=== PATIENT | male | born 1985 | race Caucasian/White ===

== ENCOUNTER → 2018-03-11 | Outpatient (CLI) | payer OTHER ==
[~2018-03-11] MED LIST: ALBIPROI INH; ALBU90I; ALBU90OI; ALBU90OI INH; AZIT250 PO; Benadryl 50 mg50 MG PO; CEPH500 PO; CLIN150 PO; CRUTCH2 USE; CRUTCH3 USE; CYCL10 PO; Cipro500 MG PO; DIPH25; DIPH50 PO; DOXY100 PO; DULO30 PO; ESOM20 PO; FAMO20 PO; HYDACE5 PO; IBUP600 PO; IBUP800 PO; LORA10ER PO; MARIJUANA; METO10 PO; METPHE10 PO; METPRE4DP PO; NAPR500 PO; NAPR550 PO; OMEP20ER PO; ONDA4ODT MM; OXYACE5T PO; PENVK500 PO; PRED10 PO; PROCODE120 PO; PROM25 PO; Pepcid20 MG PO; Prednisone20 MG PO; RANI150 PO; RXHYDACE PO; RXONDA4ODT MM; RXOXYACE PO; SILSUL1TC TOP; SULTRIDS PO; TRAM50 PO; Vibramycin100 MG PO; Zithromax250 MG PO; [UNRECOGNIZED DRUG - REMARK]
== END | disposition home or self-care (01) ==
LOC: LAB EV 09:54 → LAB SHORT 09:54
DX: L08.9 Local infection of the skin and subcutaneous tissue, unspecified (principal)
CPT/HCPCS: 87070; 87077; 87147; 87186; 87205

== ENCOUNTER 2019-03-24 20:23 | Emergency (ER) | payer OTHER ==
[~2019-03-24] VITALS: Ht 172.7 cm; Wt 65.8 kg
[2019-03-24] MEDS ORDERED: Prednisone20 MG PO (22:08)
[2019-03-24] MEDS ORDERED: ALBU90OI INH (22:08)
[2019-03-24] MEDS ORDERED: Vistaril25 MG PO (22:08)
== END 2019-03-24 22:20 | disposition home or self-care (01) ==
LOC: ER 20:23
DX: L50.9 Urticaria, unspecified (principal); Z76.0 Encounter for issue of repeat prescription; Z88.5 Allergy status to narcotic agent; I10 Essential (primary) hypertension; F17.200 Nicotine dependence, unspecified, uncomplicated
CPT/HCPCS: 99283; J7512

== ENCOUNTER 2019-04-10 10:58 | Emergency (ER) | payer OTHER ==
[~2019-04-10] VITALS: Ht 175.3 cm; Wt 65.8 kg
[~2019-04-10 10:58] MED LIST changes: +Vistaril25 MG PO
== END 2019-04-10 12:44 | disposition left against medical advice (07) ==
LOC: ER 10:58
DX: Z53.21 Procedure and treatment not carried out due to patient leaving prior to being seen by health care provider (principal)
CPT/HCPCS: 93005; 93010

== ENCOUNTER → 2019-12-23 | Outpatient (CLI) | payer OTHER ==
[~2019-12-23] MED LIST changes: +METH10 PO
== END | disposition home or self-care (01) ==
LOC: LAB SHORT 12:00 → LAB 12:00
DX: L02.91 Cutaneous abscess, unspecified (principal)
CPT/HCPCS: 87070; 87075; 87077; 87147; 87186; 87205

== ENCOUNTER 2020-06-19 18:44 | Inpatient (IN) | payer OTHER ==
[~2020-06-19] VITALS: Ht 172.7 cm; Wt 78.4 kg
[2020-06-19 20:13] LABS: BASOPHILS ABSOLUTE AUTO 0.08 K/mm3 (0.00-0.23); BASOPHILS PERCENT AUTO 1 % (0-2); EOSINOPHILS ABSOLUTE AUTO 0.91 K/mm3 (0.00-0.68); EOSINOPHILS PERCENT AUTO 8 % (0-6); Hematocrit 36.9 % (37.0-53.0); Hemoglobin 12.4 g/dL (13.5-17.5); IMMATURE GRAN ABSOLUTE AUTO 0.03 K/mm3 (0.00-0.10); IMMATURE GRAN PERCENT AUTO 0 % (0-1); LYMPHOCYTES ABSOLUTE AUTO 4.14 K/mm3 (0.84-5.20); LYMPHOCYTES PERCENT AUTO 35 % (21-46); MONOCYTES ABSOLUTE AUTO 1.17 K/mm3 (0.16-1.47); MONOCYTES PERCENT AUTO 10 % (4-13); Mean Corpuscular HGB 29.2 pg (26.0-34.0); Mean Corpuscular HGB Conc 33.6 g/dL (31.5-36.5); Mean Corpuscular Volume 87 fL (80-100); Mean Platelet Volume 10.1 fL (9.1-12.4); NEUTROPHILS ABSOLUTE AUTO 5.45 K/mm3 (1.96-9.15); NEUTROPHILS PERCENT AUTO 46 % (41-73); Platelet Count 245 K/mm3 (150-400); RDW Coefficient Variation 12.8 % (11.7-14.2); RDW Standard Deviation 41.1 fL (35.1-46.3); Red Blood Cell Count 4.24 M/mm3 (4.30-5.90); White Blood Cell Count 11.78 K/mm3 (4.00-11.30)
[2020-06-19 20:24] LABS: Alanine Aminotransfer (ALT/SGP 196 U/L (12-78); Albumin, Blood 3.4 g/dL (3.4-5.0); Albumin/Globulin Ratio 0.8 (0.8-1.8); Alk Phos 98 U/L (50-136); Anion Gap 5 mmol/L (6-16); Aspartate Aminotrans (AST/SGOT 73 U/L (12-37); Bilirubin, Total 0.3 mg/dL (0.1-1.0); Blood Urea Nitrogen 15 mg/dL (8-24); Bun/Creatinine Ratio 18.7 (12.0-20.0); CO2, Blood 25 mmol/L (21-32); Chloride, Blood 106 mmol/L (98-108); Globulin, Blood 4.2 g/dL (2.2-4.0); Glomerular Filtration Rate >60 (60-); Glucose, Blood 154 mg/dL (70-99); Sodium, Blood 136 mmol/L (136-145); Total Protein, Blood 7.6 g/dL (6.4-8.2)
--- NOTE | 2020-06-20 02:39 | NUR ---
ADMISSION: PATIENT IS RECIEVED VIA STRETCHER, AMB. TO BED FROM STRETCHER WITH A STEADY GAIT, VSS. PATIENT IS ORIENTED TO THE ROOM AND CALL [facility].
[2020-06-20 04:10] LABS: Influenza A, PCR NEGATIVE (NEGATIVE); Influenza B, PCR NEGATIVE (NEGATIVE); Resp Syncytial Virus, PCR NEGATIVE (NEGATIVE); SARS-Cov-2 (COVID-19) PCR, MMC NEGATIVE (NEGATIVE)
[2020-06-20 06:03] LABS: BASOPHILS ABSOLUTE AUTO 0.06 K/mm3 (0.00-0.23); BASOPHILS PERCENT AUTO 1 % (0-2); EOSINOPHILS PERCENT AUTO 8 % (0-6); Hematocrit 33.5 % (37.0-53.0); Hemoglobin 11.4 g/dL (13.5-17.5); IMMATURE GRAN ABSOLUTE AUTO 0.04 K/mm3 (0.00-0.10); IMMATURE GRAN PERCENT AUTO 0 % (0-1); LYMPHOCYTES PERCENT AUTO 42 % (21-46); MONOCYTES ABSOLUTE AUTO 0.94 K/mm3 (0.16-1.47); MONOCYTES PERCENT AUTO 9 % (4-13); Mean Corpuscular HGB 29.6 pg (26.0-34.0); Mean Corpuscular Volume 87 fL (80-100); NEUTROPHILS ABSOLUTE AUTO 4.33 K/mm3 (1.96-9.15); NEUTROPHILS PERCENT AUTO 40 % (41-73); Platelet Count 224 K/mm3 (150-400); RDW Coefficient Variation 12.9 % (11.7-14.2); RDW Standard Deviation 40.6 fL (35.1-46.3); Red Blood Cell Count 3.85 M/mm3 (4.30-5.90); White Blood Cell Count 10.77 K/mm3 (4.00-11.30)
--- NOTE | 2020-06-20 06:47 | NUR ---
SHIFT SUMMARY: PATIENT IS A&OX4, PAIN IN LEFT HAND IS WELL CONTROLED WITH IV TORADOL. USING URINAL INDEPENDANTLY. LACTATED RINGERS ARE INFUSING AT 100 ML/HR. NPO SINCE CO FOR PROCEEDURE IN OR TODAY.
[2020-06-20 06:55] LABS: Alanine Aminotransfer (ALT/SGP 178 U/L (12-78); Albumin/Globulin Ratio 0.8 (0.8-1.8); Alk Phos 95 U/L (50-136); Anion Gap 6 mmol/L (6-16); Aspartate Aminotrans (AST/SGOT 70 U/L (12-37); Bilirubin, Total 0.2 mg/dL (0.1-1.0); Blood Urea Nitrogen 11 mg/dL (8-24); Bun/Creatinine Ratio 14.6 (12.0-20.0); CO2, Blood 24 mmol/L (21-32); Calcium, Blood 8.3 mg/dL (8.5-10.1); Chloride, Blood 107 mmol/L (98-108); Creatinine, Blood 0.76 mg/dL (0.60-1.20); Globulin, Blood 3.8 g/dL (2.2-4.0); Glomerular Filtration Rate >60 (60-); Glucose, Blood 102 mg/dL (70-99); Sodium, Blood 137 mmol/L (136-145); Total Protein, Blood 6.8 g/dL (6.4-8.2)
--- NOTE | 2020-06-20 13:20 | NUR ---
PATIENT WAS BROUTGHT TO D/S FOR HIS PROCEDURE. Ambulatory in Day Surgery Lungs clear T/O to Auscultation. History, Chart, Medications and Allergies reviewed before start of procedure.Patient confirms NPO status and agrees with scheduled surgery. Pre-Op teaching done. Pt verbalizes understanding.
--- NOTE | 2020-06-20 15:33 | NUR ---
06/20/20 1533 THEOFARHAT ALVARADO PT RECEIVED SCHEDULED DOSE OF ANTIBIOTICS PRIOR TO PROCEDURE PER DR ORDERS.
--- NOTE | 2020-06-20 19:01 | NUR ---
SHIFT SUMMARY- PT ARRIVED BACK FROM SURGERY. VITALS REMAIN STABLE PAIN 9/10 MEDICATED PER EMAR. PT SLEEPING AT CHANGE OF SHIFT, WOKE TO GIVE LATE DINNER TRAY THAT ARRIVED AT 1840. PT CURRENTLY EATING DINNER. NO S&S OF DISTRESS NOTED AT THE TIME OF SHIFT CHANGE. RIGHT HAND IV NOT PATENT UPON ARRIVAL FROM DAY SURGERY. PASSED ON TO NIGHT RN IT WILL BE REMOVED SHORTLY.
[2020-06-21 00:48] LABS: Vancomycin, Trough 11.4 ug/mL (5.0-10.0)
[2020-06-21 05:30] LABS: BASOPHILS ABSOLUTE AUTO 0.03 K/mm3 (0.00-0.23); BASOPHILS PERCENT AUTO 0 % (0-2); EOSINOPHILS ABSOLUTE AUTO 0.01 K/mm3 (0.00-0.68); EOSINOPHILS PERCENT AUTO 0 % (0-6); Hematocrit 33.8 % (37.0-53.0); Hemoglobin 11.4 g/dL (13.5-17.5); IMMATURE GRAN ABSOLUTE AUTO 0.03 K/mm3 (0.00-0.10); IMMATURE GRAN PERCENT AUTO 0 % (0-1); LYMPHOCYTES ABSOLUTE AUTO 2.06 K/mm3 (0.84-5.20); LYMPHOCYTES PERCENT AUTO 20 % (21-46); MONOCYTES ABSOLUTE AUTO 0.47 K/mm3 (0.16-1.47); MONOCYTES PERCENT AUTO 5 % (4-13); Mean Corpuscular HGB 29.2 pg (26.0-34.0); Mean Corpuscular HGB Conc 33.7 g/dL (31.5-36.5); Mean Corpuscular Volume 87 fL (80-100); NEUTROPHILS ABSOLUTE AUTO 7.67 K/mm3 (1.96-9.15); NEUTROPHILS PERCENT AUTO 75 % (41-73); Platelet Count 247 K/mm3 (150-400); RDW Coefficient Variation 12.4 % (11.7-14.2); RDW Standard Deviation 39.5 fL (35.1-46.3); White Blood Cell Count 10.27 K/mm3 (4.00-11.30)
[2020-06-21 05:56] LABS: Anion Gap 4 mmol/L (6-16); Blood Urea Nitrogen 13 mg/dL (8-24); Bun/Creatinine Ratio 16.8 (12.0-20.0); CO2, Blood 29 mmol/L (21-32); Calcium, Blood 8.8 mg/dL (8.5-10.1); Chloride, Blood 102 mmol/L (98-108); Creatinine, Blood 0.77 mg/dL (0.60-1.20); Glomerular Filtration Rate >60 (60-); Glucose, Blood 120 mg/dL (70-99); Magnesium, Blood 2.1 mg/dL (1.6-2.4); Phosphorus, Blood 4.6 mg/dL (2.5-4.9); Potassium, Blood 4.4 mmol/L (3.5-5.5); Sodium, Blood 135 mmol/L (136-145)
--- NOTE | 2020-06-21 06:17 | NUR ---
SHIFT SUMMARY: PATIENT IS A&OX4, VSS, TOLERATING SMALL AMOUNTS OF PO FLUIDS WELL. UP TO THE BATHROOM INDEPENDANTLY WITH STEADY GAIT. DRSG TO LEFT HAND/ARM IS CD&I. GOOD CMS NOTED IN LUE. PAIN IS WELL CONTROLED WITH IV TORADOL.
--- NOTE | 2020-06-21 15:45 | NUR ---
PATIENT IS ALERT AND ORIENTED, INDEPENDENT IN ROOM. VITALS HAVE BEEN STABLE. CONTINUES ON IV ABX WITHOUT S/SX OF ADVERSE REACTIONS NOTED OR REPORTED. LEFT HANDWRAPPED IN DRESSING, C/D/I. SATNAM DRAIN IN PLACE. NO ACUTE CHANGES TO REPORT OF AT THIS TIME. IF ALL CONTINUES TO IMPROVE PATIENT MAY BE DISCHARGED HOME TOMORROW. CALL LIGHT WITHIN REACH.
--- NOTE | 2020-06-22 05:02 | NUR ---
SHIFT SUMMARY PT PLEASANT AND COOPERATIVE. VERY SLEEPY. WOKE TO VERBAL STIMULI BUT WAS FOUND TO BE SLEEPING EACH TIME PT WAS ROUNDED ON. NO COMPLAINTS OF PAIN. DRESSING TO LEFT WRIST REMAINED CLEAN, DRY, AND INTACT. VITAL SIGNS STABLE. NO ACUTE CHANGES THIS EVENING. WILL CONTINUE TO MONITOR.
[2020-06-22 09:17] LABS: Vancomycin, Trough 16.7 ug/mL (5.0-10.0)
[2020-06-22] MEDS ORDERED: VISBIOME 112.51 EACH PO (12:10)
[2020-06-22] MEDS ORDERED: SULFAMETHOXAZO1 EAC1 PO (12:11)
--- NOTE | 2020-06-22 12:26 | NUR ---
DISCHARGE SUMMARY PT A&Ox4. DISCHARGING TO HOME TODAY. PT ACTING VERY ANXIOUS TO LEAVE THIS AM. REPEATEDLY ASKING WHEN HE CAN GO AND THREATENING TO LEAVE AMA. DC ORDERS PROCESSED AFTER CLEARED BY ORTHO. VITALS REVIEWED. DC INSTRUCTIONS DISCUSSED INCLUDING DC MEDICATIONS/RX, FOLLOW UP APPOINTMENT WITH ORTHO, AND INFO TO ESTABLISH CARE WITH NEW PCP. PT VERBALIZES UNDERSTANDING. DENIES ANY QUESTIONS AT THIS TIME. PT SAFELY ESCORTED OUT VIA WC WITH EMBOSSING CLERK.
== END 2020-06-22 12:27 | disposition home or self-care (01) | DRG 854 ==
LOC: ER 18:44 → MEDS 23:57
PROVIDERS: Internal Medicine; Orthopaedic Surgery; Pharmacist; Physician Assistant; ADMIT Family Medicine
PROC: 0L960ZZ Drainage of Left Lower Arm and Wrist Tendon, Open Approach (ICD-10-PCS; 2020-06-20)
PROC: 0JBH0ZZ Excision of Left Lower Arm Subcutaneous Tissue and Fascia, Open Approach (ICD-10-PCS; principal; 2020-06-20 13:45)
DX: A41.02 Sepsis due to Methicillin resistant Staphylococcus aureus (principal); L02.414 Cutaneous abscess of left upper limb; L03.114 Cellulitis of left upper limb; D63.8 Anemia in other chronic diseases classified elsewhere; F11.10 Opioid abuse, uncomplicated; Z88.5 Allergy status to narcotic agent; J44.9 Chronic obstructive pulmonary disease, unspecified; I10 Essential (primary) hypertension; Z79.899 Other long term (current) drug therapy; B19.20 Unspecified viral hepatitis C without hepatic coma; Z71.6 Tobacco abuse counseling
CPT/HCPCS: 0241U; 36415; 73201; 80053; 80069; 80202; 83605; 83735; 85025; 87040; 87070; 87075; 87077; 87086; 87147; 87186; 87205; 93005; 93010; 96365; 96366; 96375; 99284-25; A9270; J0692; J1100; J1170; J1885; J2250; J2405; J2543; J2704; J3010; J3370; J7030; J7120; Q9967

== ENCOUNTER 2021-06-16 23:37 | Emergency (ER) | payer OTHER ==
[~2021-06-16] VITALS: Ht 172.7 cm; Wt 72.6 kg
[~2021-06-16 23:37] MED LIST changes: +SULFAMETHOXAZO1 EAC1 PO; +VISBIOME 112.51 EACH PO
[2021-06-17] MEDS ORDERED: NAPR500 PO (00:28)
== END 2021-06-17 01:20 | disposition home or self-care (01) ==
LOC: ER 23:37
DX: S09.90XA Unspecified injury of head, initial encounter (principal); S39.012A Strain of muscle, fascia and tendon of lower back, initial encounter; I10 Essential (primary) hypertension; J44.9 Chronic obstructive pulmonary disease, unspecified; M51.37 Other intervertebral disc degeneration, lumbosacral region; F17.210 Nicotine dependence, cigarettes, uncomplicated; Z88.5 Allergy status to narcotic agent; V89.2XXA Person injured in unspecified motor-vehicle accident, traffic, initial encounter
CPT/HCPCS: 70450; 72100; A9270

== ENCOUNTER 2021-07-02 04:21 | Emergency (ER) | payer OTHER ==
[2021-07-02 07:38] LABS: BASOPHILS ABSOLUTE AUTO 0.06 K/mm3 (0.00-0.23); BASOPHILS PERCENT AUTO 1 % (0-2); EOSINOPHILS ABSOLUTE AUTO 0.03 K/mm3 (0.00-0.68); EOSINOPHILS PERCENT AUTO 0 % (0-6); Hematocrit 41.1 % (37.0-53.0); Hemoglobin 14.2 g/dL (13.5-17.5); IMMATURE GRAN ABSOLUTE AUTO 0.04 K/mm3 (0.00-0.10); IMMATURE GRAN PERCENT AUTO 0 % (0-1); LYMPHOCYTES ABSOLUTE AUTO 2.11 K/mm3 (0.84-5.20); LYMPHOCYTES PERCENT AUTO 18 % (21-46); MONOCYTES ABSOLUTE AUTO 0.45 K/mm3 (0.16-1.47); MONOCYTES PERCENT AUTO 4 % (4-13); Mean Corpuscular HGB 28.5 pg (26.0-34.0); Mean Corpuscular HGB Conc 34.5 g/dL (31.5-36.5); Mean Corpuscular Volume 82 fL (80-100); Mean Platelet Volume 10.7 fL (9.1-12.4); NEUTROPHILS ABSOLUTE AUTO 8.84 K/mm3 (1.96-9.15); NEUTROPHILS PERCENT AUTO 77 % (41-73); Platelet Count 258 K/mm3 (150-400); RDW Coefficient Variation 12.5 % (11.7-14.2); RDW Standard Deviation 37.9 fL (35.1-46.3); Red Blood Cell Count 4.99 M/mm3 (4.30-5.90); White Blood Cell Count 11.53 K/mm3 (4.00-11.30)
[2021-07-02 07:42] LABS: Albumin, Blood 4.5 g/dL (3.4-5.0); Albumin/Globulin Ratio 1.2 (0.8-1.8); Bilirubin, Total 0.8 mg/dL (0.1-1.0); Bun/Creatinine Ratio 18.7 (12.0-20.0); Calcium, Blood 9.5 mg/dL (8.5-10.1); Creatinine, Blood 0.86 mg/dL (0.60-1.20); Globulin, Blood 3.6 g/dL (2.2-4.0); Potassium, Blood 3.9 mmol/L (3.5-5.5); Total Protein, Blood 8.1 g/dL (6.4-8.2)
[2021-07-02 08:49] LABS: Source, Urine Clean Catch
[2021-07-02 08:56] LABS: Bilirubin, Urine Neg (Neg); Blood, Urine Neg (Neg); Color, Urine Yellow (P-Yellow); Glucose Qualitative, Urine Neg (Neg); Ketones, Urine 3+ (Neg); Leukocyte Esterase, Urine Neg (Neg); Nitrite, Urine Neg (Neg); Protein, Urine 1+ (Neg); Specific Gravity, Urine 1.015 (1.003-1.022); Urobilinogen, Urine NORM (Normal)
[2021-07-02 09:11] LABS: U Amphetamine Screen DETECTED; U Barbituate Screen Not Detected; U Benzodiazapine Screen Not Detected; U Buprenorphine Screen Not Detected; U Cannabinoids Screen DETECTED; U Cocaine Screen Not Detected; U Methadone Screen Not Detected; U Methamphetamine Screen DETECTED; U Opiates Screen DETECTED; U Oxycodone Screen Not Detected; U Phencyclidine Screen Not Detected; U Propoxyphene Screen Not Detected
[2021-07-02 09:13] LABS: Appearance, Urine Hazy (Clear)
[2021-07-02 09:14] LABS: Amorphous Heavy (0-Heavy); Bacteria Rare /hpf; Red Blood Cells, Urine 0-2 /hpf (0-2); Squamous Epithelial Cells Not Seen /hpf (Few); White Blood Cells, Urine 0-2 /hpf (0-5)
== END 2021-07-02 10:06 | disposition home or self-care (01) ==
LOC: ER 04:21
PROVIDERS: Student in an Organized Health Care Education/Training Program
DX: R10.84 Generalized abdominal pain (principal); R11.2 Nausea with vomiting, unspecified; I10 Essential (primary) hypertension; F17.210 Nicotine dependence, cigarettes, uncomplicated
CPT/HCPCS: 74160; 80053; 81001; 83690; 85025; 96374; 99284-25; J1885; Q9967

== ENCOUNTER 2021-08-03 03:00 | Emergency (ER) | payer OTHER ==
[~2021-08-03] VITALS: Ht 172.7 cm; Wt 77.1 kg
[2021-08-03] MEDS ORDERED: CYCL10 PO (07:08)
== END 2021-08-03 07:16 | disposition home or self-care (01) ==
LOC: ER 03:00
DX: S46.912A Strain of unspecified muscle, fascia and tendon at shoulder and upper arm level, left arm, initial encounter (principal); S76.912A Strain of unspecified muscles, fascia and tendons at thigh level, left thigh, initial encounter; I10 Essential (primary) hypertension; F17.210 Nicotine dependence, cigarettes, uncomplicated; J44.9 Chronic obstructive pulmonary disease, unspecified; V89.2XXA Person injured in unspecified motor-vehicle accident, traffic, initial encounter
CPT/HCPCS: 99283

== ENCOUNTER 2022-05-17 04:11 | Emergency (ER) | payer OTHER ==
[~2022-05-17] VITALS: Ht 172.7 cm; Wt 72.6 kg
[2022-05-17] MEDS ORDERED: CLIN1TS TOP (06:35)
[2022-05-17] MEDS ORDERED: DOXY100 PO (06:35)
== END 2022-05-17 06:46 | disposition home or self-care (01) ==
LOC: ER 04:11
DX: L73.9 Follicular disorder, unspecified (principal); I10 Essential (primary) hypertension; J44.9 Chronic obstructive pulmonary disease, unspecified; F17.210 Nicotine dependence, cigarettes, uncomplicated
CPT/HCPCS: 99283; A9270

== ENCOUNTER 2022-06-04 02:23 | Emergency (ER) | payer OTHER ==
[~2022-06-04] VITALS: Ht 172.7 cm; Wt 75.0 kg
[~2022-06-04 02:23] MED LIST changes: +CLIN1TS TOP
[2022-06-04 02:38] VITALS: BP 142/96
[2022-06-04] MEDS ORDERED: CEPH500 PO (02:55)
== END 2022-06-04 03:32 | disposition home or self-care (01) ==
LOC: ER 02:23
DX: L02.511 Cutaneous abscess of right hand (principal); I10 Essential (primary) hypertension; J44.9 Chronic obstructive pulmonary disease, unspecified; F17.210 Nicotine dependence, cigarettes, uncomplicated; Z88.5 Allergy status to narcotic agent
CPT/HCPCS: 99282; A9270

== ENCOUNTER 2024-01-30 08:23 | Emergency (ER) | payer OTHER ==
[~2024-01-30] VITALS: Ht 172.7 cm; Wt 68.0 kg
[2024-01-30 09:14] VITALS: BP 147/84
[2024-01-30] MEDS ORDERED: Dexamethasone Sod Phos 10 MG/ML 1ML VIAL PO ONE (11:15)
[2024-01-30] MEDS ORDERED: Ipratropium/Albuterol SulF 2.5-0.5MG/3 ML Amp INH ONE (11:15)
[2024-01-30] MEDS ORDERED: ALBU90OI INH (12:10)
== END 2024-01-30 12:18 | disposition home or self-care (01) ==
LOC: ER 08:23
DX: J45.901 Unspecified asthma with (acute) exacerbation (principal); J44.89 Other specified chronic obstructive pulmonary disease; I10 Essential (primary) hypertension; F17.210 Nicotine dependence, cigarettes, uncomplicated; Z88.5 Allergy status to narcotic agent
CPT/HCPCS: 71046; 94640; 94664; 99285-25; J1100

== ENCOUNTER 2024-03-17 01:06 | Emergency (ER) | payer OTHER ==
[~2024-03-17] VITALS: Ht 172.7 cm; Wt 79.4 kg
[2024-03-17 01:12] VITALS: BP 131/87
[2024-03-17 02:03] LABS: Influenza B, PCR NEGATIVE (NEGATIVE); Resp Syncytial Virus, PCR NEGATIVE (NEGATIVE); SARS-Cov-2 (COVID-19) PCR, MMC NEGATIVE (NEGATIVE)
[2024-03-17 02:38] LABS: Influenza A, PCR POSITIVE (NEGATIVE)
== END 2024-03-17 03:42 | disposition home or self-care (01) ==
LOC: ER 01:06
PROVIDERS: Emergency Medicine
DX: S29.011A Strain of muscle and tendon of front wall of thorax, initial encounter (principal); J44.9 Chronic obstructive pulmonary disease, unspecified; J10.1 Influenza due to other identified influenza virus with other respiratory manifestations; I10 Essential (primary) hypertension; F17.210 Nicotine dependence, cigarettes, uncomplicated; Z79.51 Long term (current) use of inhaled steroids; Z88.9 Allergy status to unspecified drugs, medicaments and biological substances
CPT/HCPCS: 0241U; 71046; 99283-25

== ENCOUNTER 2024-03-23 23:25 | Emergency (ER) | payer OTHER ==
[~2024-03-23] VITALS: Ht 172.7 cm; Wt 65.8 kg
[2024-03-24] MEDS ORDERED: Amoxicillin/Clavulanate K 875 MG Tab PO ONE (02:00)
[2024-03-24] MEDS ORDERED: Azithromycin 250 MG Tab PO ONE (02:00)
[2024-03-24 02:53] LABS: Albumin, Blood 2.9 g/dL (3.4-5.0); Albumin/Globulin Ratio 0.7 (0.8-1.8); Bilirubin, Total 0.7 mg/dL (0.1-1.0); Bun/Creatinine Ratio 23.7 (12.0-20.0); Calcium, Blood 8.7 mg/dL (8.5-10.1); Creatinine, Blood 0.63 mg/dL (0.60-1.20); Globulin, Blood 3.9 g/dL (2.2-4.0); Potassium, Blood 4.8 mmol/L (3.5-5.5); Total Protein, Blood 6.8 g/dL (6.4-8.2)
[2024-03-24 03:18] LABS: BASOPHILS ABSOLUTE AUTO 0.05 K/mm3 (0.00-0.23); BASOPHILS PERCENT AUTO 0 % (0-2); EOSINOPHILS ABSOLUTE AUTO 0.21 K/mm3 (0.00-0.68); EOSINOPHILS PERCENT AUTO 1 % (0-6); Hematocrit 29.5 % (37.0-53.0); Hemoglobin 10.3 g/dL (13.5-17.5); IMMATURE GRAN ABSOLUTE AUTO 0.09 K/mm3 (0.00-0.10); IMMATURE GRAN PERCENT AUTO 1 % (0-1); LYMPHOCYTES ABSOLUTE AUTO 5.19 K/mm3 (0.84-5.20); LYMPHOCYTES PERCENT AUTO 32 % (21-46); MONOCYTES ABSOLUTE AUTO 1.07 K/mm3 (0.16-1.47); MONOCYTES PERCENT AUTO 7 % (4-13); Mean Corpuscular HGB 28.7 pg (26.0-34.0); Mean Corpuscular HGB Conc 34.9 g/dL (31.5-36.5); Mean Corpuscular Volume 82 fL (80-100); Mean Platelet Volume 10.1 fL (9.1-12.4); NEUTROPHILS ABSOLUTE AUTO 9.64 K/mm3 (1.96-9.15); NEUTROPHILS PERCENT AUTO 59 % (41-73); Platelet Count 244 K/mm3 (150-400); Red Blood Cell Count 3.59 M/mm3 (4.30-5.90); White Blood Cell Count 16.25 K/mm3 (4.00-11.30)
[2024-03-24] MEDS ORDERED: AZIT250 PO (05:31)
[2024-03-24] MEDS ORDERED: AMOCLA875 PO (05:31)
[2024-03-24 05:44] VITALS: BP 117/87
== END 2024-03-24 05:45 | disposition home or self-care (01) ==
LOC: ER 23:25
PROVIDERS: Emergency Medicine
DX: J18.9 Pneumonia, unspecified organism (principal); F14.10 Cocaine abuse, uncomplicated; I10 Essential (primary) hypertension; J44.89 Other specified chronic obstructive pulmonary disease; Z88.5 Allergy status to narcotic agent
CPT/HCPCS: 71046; 80053; 84484; 85025; 93005; 93010; 99285-25; A9270

== ENCOUNTER 2025-01-28 17:49 | Emergency (ER) | payer OTHER ==
[~2025-01-28] VITALS: Ht 172.7 cm; Wt 61.2 kg
[~2025-01-28 17:49] MED LIST changes: +AMOCLA875 PO
[2025-01-28] MEDS ORDERED: LIDOCAINE 2.5%/PRILOCAINE 2.5% CREAM 30 GM TUBE TOP ONE (22:30)
[2025-01-28] MEDS ORDERED: OxyCODONE 5 mg/Acetamin 325 mg TABLET PO ONE (22:40)
[2025-01-28] MEDS ORDERED: Midazolam HCl 1MG / ML 2ML Vial IV ONE (23:30)
[2025-01-29] MEDS ORDERED: FentaNYL Citrate 50 MCG/ML 2 ML Injection ONE (00:20)
[2025-01-29] MEDS ORDERED: Ondansetron HCl 2 MG / ML 2ML Vial ONE (00:20)
[2025-01-29] MEDS ORDERED: Ondansetron HCl 2 MG / ML 2ML Vial IV ONE ×2 (00:20)
[2025-01-29] MEDS ORDERED: FentaNYL Citrate 50 MCG/ML 2 ML Injection IV ONE ×2 (00:20)
[2025-01-29] MEDS ORDERED: CeFAZolin Sodium 1,000 MG in NS 50 ML IV ONE (00:45)
[2025-01-29] MEDS ORDERED: CEPH500 PO (00:51)
[2025-01-29] MEDS ORDERED: IBU600 M1 PO (00:51)
[2025-01-29 03:00] VITALS: BP 123/85
== END 2025-01-29 03:15 | disposition home or self-care (01) ==
LOC: ER 17:49
DX: N47.2 Paraphimosis (principal); N48.22 Cellulitis of corpus cavernosum and penis; J44.89 Other specified chronic obstructive pulmonary disease; I10 Essential (primary) hypertension; F17.210 Nicotine dependence, cigarettes, uncomplicated; Z88.5 Allergy status to narcotic agent
CPT/HCPCS: A9270; J0690; J2250; J2405; J2704; J3010